=== PATIENT | male | born 2000 | race Two or more races ===

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

== ENCOUNTER 2019-01-30 07:19 | Day surgery (SDC) | payer OTHER ==
[2019-01-29 16:22] VITALS: BMI 23.0
[~2019-01-30] VITALS: Ht 185.4 cm; Wt 77.0 kg
[2019-01-30] VITALS (14 sets, daily range): BP systolic 112–140; BP diastolic 59–74; PULSE 56–110; RESP 16–36; Ht 185.4 cm; Wt 77.0 kg
--- NOTE | 2019-01-30 07:12 | HP ---
DATE OF ADMISSION: 01/30/2019 HISTORY: A 18-year-old male patient, initially seen 02/2017 for followup of a left ear laceration. 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 He underwent a se condary procedure in 06/2017 for release of the cicatricial formation. He did well. However, subseq uent to that procedure, a keloid has developed in the area of the left postauricular incision. The willian snow is now admitted to the hospital for excision of the left postauricular keloid. PAST MEDICAL HISTORY: Negative. ALLERGIES: NEGATIVE. MEDICAL CONDITIONS: Negative. DAILY MEDICATIONS: Negative. CLOTTING DISORDERS: Negative. HABITS: Negative. FAMILY HISTORY: Negative. REVIEW OF SYSTEMS: Negative. PRIOR SURGERIES: See HPI. PHYSICAL EXAMINATION: GENERAL: Well-developed, well-nourished male patient in no acute distress. HEAD: Normocephalic. No masses or deformities. EARS AND TYMPANIC MEMBRANES: There is a large keloid measuring approximately 3.5 cm in the left post auricular region. NOSE: Clear. OROPHARYNX: Clear. NECK: No masses or adenopathy. CHEST: Clear to P and A. HEART: Regular sinus rhythm without murmur. ABDOMEN: Soft, bowel sounds normal. No masses or megaly. EXTREMITIES: Full range of motion without deformity. NEUROLOGIC: Physiologic. RECTAL: Not done. IMPRESSION: Left ear keloid. RECOMMENDATION: Admit for surgery. Dictated By: KOFI WAHL/LUIS ENRIQUE Conf#: [id number] DID#: [id number]
--- NOTE | 2019-01-30 09:01 | PREAC ---
Date/Time of Note Date/Time of Note DATE: 01/30/19 TIME: 09:00 Anesthesia Eval and Record Evaluation Time Pre-Procedure Interview DATE: 01/30/19 TIME: 09:00 Age 18 Sex male NPO: 8 hrs Preoperative diagnosis Left ear keloid Planned procedure Excision of keloid Past Medical History Past Medical History: None Surgery & Anesthesia Issues No known issue Meds Anticoagulation: No Beta Zoe within 24 hr: No Reason Beta Zoe not given: Pt. not on B-Zoe No Active Prescriptions or Reported Meds Meds reviewed: Yes Allergies Coded Allergies: No Known Allergy (Unverified , 07/26/17) Allergies Reviewed: Yes Labs/Studies Labs Reviewed: Reviewed by anesthesiologist test: N/A Pre-procedure Exam Last vitals Vital Signs Date Temp Pulse Resp B/P (MAP) Pulse Ox O2 O2 Flow FiO2 Time Delivery Rate 01/30/19 97.4 56 16 119/65 99 Room Air 07:25 (83) Airway: Adequate mouth opening Mallampati: Mallampati I Teeth: Normal Lung: Normal Heart: Normal ASA Physical Status ASA physical status: 1 Emergency: None Planned Anesthetic General/MAC: LMA Planned Pain Management Parenteral pain med Pre-operative Attestations Prior to commencing anesthesia and surgery, the patient was re-evaluated, there was verification of: *The patient's identity *The results of appropriate recent lab work and preoperative vital signs *The above evaluation not changing prior to induction *Anesthetic plan, risk benefits, alternative and complications discussed with patient/family; questions answered; patient/family understands, accepts and wishes to proceed. PHILLY SOMMERS MD Jan 30, 2019 09:01
[2019-01-30] MEDS ORDERED: LIDOCAINE 2% (SDV) 5 ML INJ ONE (09:16)
[2019-01-30] MEDS ORDERED: PROPOFOL 20 ML ONE (09:16)
[2019-01-30] MEDS ORDERED: ATROPINE 1 MG/10 ML SYRINGE ONE (09:34)
[2019-01-30] MEDS ORDERED: LIDOCAINE 1%/EPI (1:100,000) (MDV) 20 ML INJ ONE ×2 (09:43→10:23)
[2019-01-30] MEDS ORDERED: LIDOCAINE 1%/EPI 30 ML INJ ONE (09:46)
[2019-01-30] MEDS ORDERED: ONDANSETRON 4 MG INJ ONE (09:56)
[2019-01-30] MEDS ORDERED: DIPHENHYDRAMINE 50 MG INJ IV PRN (10:00)
[2019-01-30] MEDS ORDERED: MEPERIDINE 25 MG INJ IV PRN (10:00)
[2019-01-30] MEDS ORDERED: ONDANSETRON 4 MG INJ IV PRN (10:00)
[2019-01-30] MEDS ORDERED: MIDAZOLAM 1 MG/ML 2 ML INJ IV PRN (10:00)
[2019-01-30] MEDS ORDERED: OXYCODONE/ACETAMINOPHEN (5/325) TAB PO PRN ×2 (10:00)
[2019-01-30] MEDS ORDERED: FENTAnyl 50 MCG/ML VIAL IV PRN ×3 (10:00)
[2019-01-30] MEDS ORDERED: METOCLOPRAMIDE 10 MG INJ IV PRN (10:00)
[2019-01-30] MEDS ORDERED: HYDROmorphONE 1 MG/5 ML IV SYRINGE IV PRN ×3 (10:00)
[2019-01-30] MEDS ORDERED: NEOMYC/POLYMYX/BACIT 30 GM OINT ONE (10:04)
--- NOTE | 2019-01-30 10:29 | SIPON ---
Date/Time of Note Date/Time of Note DATE: 01/30/19 TIME: 10:28 Operative Report Preoperative Diagnosis l ear tumor Postoperative Diagnosis excise l ear tumor Operation/Procedure Performed iraida Surgeon ayaz signature line senior office assistant none Anesthesia: general Estimated blood loss: 0 - 10 ml's Transfusion Required none Specimen to path Grafts/Implants none Complications none KOFI CROWELL MD Jan 30, 2019 10:29
--- NOTE | 2019-01-30 11:44 | PAC ---
Date/Time of Note Date/Time of Note DATE: 01/30/19 TIME: 11:43 Post-Anesthesia Notes Post-Anesthesia Note Last documented vital signs Vital Signs Date Temp Pulse Resp B/P (MAP) Pulse Ox O2 O2 Flow FiO2 Time Delivery Rate 01/30/19 66 27 127/67 99 Room Air 11:29 (87) 01/30/19 98.4 10:30 Activity: WNL Respiratory function: WNL Cardiovascular function: WNL Mental status: Baseline Pain reasonably controlled: Yes Hydration appropriate: Yes Nausea/Vomiting absent: Yes Comments BT: 98.3 PHILLY SOMMERS MD Jan 30, 2019 11:44
[2019-01-30] MEDS ORDERED: HYDROCODONE/APAP (7.5/325) TAB PO PRN ×2 (12:00)
== END 2019-01-30 12:15 | disposition home or self-care (01) ==
LOC: SDS 07:19
PROVIDERS: ATTEND Otolaryngology Otolaryngology/Facial Plastic Surgery
DX: L91.0 Hypertrophic scar (principal); L90.5 Scar conditions and fibrosis of skin
CPT/HCPCS: 14060; 88304; J0461; J2405; Z7512; Z7610